=== PATIENT | male | born 1980 | race American Indian/Alaskan Native ===

== ENCOUNTER 2019-09-02 05:57 | Emergency (ER) | payer OTHER | END 2019-09-02 12:06 | disposition home or self-care (01) | LOC: ED 05:57 | CPT/HCPCS: 36415; 71045; 72125; 74177; 80048; 80076; 80307; 81001; 83690; 83735; 84484; 85025; 85610; 85730; 86850; 86900; 86901; 93005; 93010; 96374; 96375; 96376; 99285; J1885; J2270; J2405; J7030; Q9967 ==

== ENCOUNTER 2019-11-06 09:12 | Outpatient (CLI) | payer OTHER ==
[2019-11-06 10:20] LABS: Blood Urea Nitrogen 15 mg/dL (9-20)
--- NOTE | 2019-11-06 11:50 | Cat Scan Report ---
CT ABDOMEN AND PELVIS WITH CONTRAST HISTORY: Follow-up abscess COMPARISON: 09/14/2019 and 09/09/2019 TECHNIQUE: Routine abdominal and pelvic CT exam performed following intravenous contrast administrat ion.. 100 cc of Omnipaque 300 was injected intravenously without incident and consent was obtained pr ior to the administration of the contrast. All CT scans at this location are performed using CT dose reduction for ALARA by means of automated exposure control. FINDINGS: CT ABDOMEN: Lung Bases: Clear. Liver: Normal. Biliary: Normal gallbladder and bile ducts. Spleen: Normal. Pancreas: Normal. Adrenals: Normal. Kidneys: Normal. The renal collecting systems and ureters are nondilated. Lymphatics: No lymphadenopathy. Vasculature: No significant abnormality. Bowel/Peritoneum: No significant abnormality. No free air. No free fluid. Normal appendix. CT PELVIC: : Normal urinary bladder, seminal vesicles and prostate. Lymphatics: No lymphadenopathy. Osseous Structures: No suspicious bone lesion. Additional Findings: A pigtail catheter is identified in the midline just superior to the urinary yonny dder. No residual fluid collection or abscess. IMPRESSION: 1. Resolution of pelvic abscess. 2. Pelvic drainage catheter and no other significant finding. Signer Name: Deevndra Smith MD Signed: 11/06/2019 11:46 AM Workstation Name: [id number]
== END 2019-11-06 09:13 | disposition home or self-care (01) ==
LOC: CT 09:12
PROVIDERS: ATTEND Surgery
DX: K65.1 Peritoneal abscess (principal)
CPT/HCPCS: 36415; 74177; 82565; 84520; Q9967